=== PATIENT | male | born 1940 | race Caucasian/White ===

== ENCOUNTER 2024-03-09 14:20 | Outpatient (CLI) | payer MEDICARE, SELFPAY ==
--- NOTE | ~2024-03-09 | MR_ITS ---
EXAMINATION: MR shoulder RT wo con DATE: 03/09/2024 15:24 INDICATION: Right shoulder pain TECHNIQUE: Magnetic resonance imaging (MRI) of the right shoulder was performed without intravenous c ontrast. Sequences included axial PD-weighted FS FSE, coronal oblique PD-weighted FS FSE, coronal obl ique T2-weighted FS FSE, sagittal PD-weighted FS FSE, and sagittal T1-weighted SE. COMPARISON: None. FINDINGS: Coracoacromial arch: The acromion undersurface is curved in morphology (type II) with tiny anterior subacromial spur. The coracoacromial ligament is normal. Moderate acromioclavicular osteoarthritis with small inferiorly di rected marginal osteophytes. Rotator cuff: Moderate supraspinatus and mild infraspinatus tendinopathy. Full-thickness rotator cuff tear at the s uperior facet footplate of the anterior two thirds of the supraspinatus tendon which measures 1.2 cm AP and 1.5 cm medial to lateral. Moderate subscapularis tendinopathy with tear involving the majority of the cephalad third of the lesser tuberosity footplate with a small portion of the cephalad margin of the tendon remaining contiguous with the superolateral margin of the footplate and residual thin intact bursal side of the tendon which remains contiguous with the intact transverse humeral ligament . The teres minor tendon is normal. Normal rotator cuff muscle bulk and signal. Biceps tendon, glenoid labrum and glenohumeral cartilage: There is complete avulsion of the long head biceps tendon from its glenoid anchor with the torn tendo n margin retracted below the level of the intertubercular groove. There is a small tear at the 10:00- 11:00 position of the posterosuperior glenoid labrum. Remainder of the glenoid labrum appears to truman in intact. There is partial thickness chondral ulceration with relatively smooth chondral surface velia ng the inferomedial aspect of the humeral head. Remaining glenohumeral cartilage appears relatively p reserved. Fluid: There is a small glenohumeral joint effusion which extends into the deep subscapular recess as well a s through the full-thickness rotator cuff tear communicating with a small amount fluid in the subacro mial/subdeltoid bursa. There is a 5 mm loose body in the subacromial bursa. No intra-articular loose osteochondral bodies. Bones: Bone alignment is normal. No fracture or pathologic marrow replacing process. There are mild cystic a nd hypertrophic changes at both the lesser and greater tuberosities likely related to chronic rotator cuff disease. IMPRESSION: 1. Moderate supraspinatus and subscapularis tendinopathy with small full-thickness tear of the anteri or supraspinatus tendon and severe partial tear at the cephalad third of the lesser tuberosity footpl ate of the subscapularis tendon. 2. Complete glenoid avulsion and distal retraction of the long head biceps tendon. 3. Mild right glenohumeral osteoarthritis with small tear at the posterosuperior glenoid labrum. 4. Moderate acromioclavicular osteoarthritis. Reviewed, dictated and finalized at location B. IMPRESSION: 1. Moderate supraspinatus and subscapularis tendinopathy with small full-thickn ess tear of the anterior supraspinatus tendon and severe partial tear at the ce phalad third of the lesser tuberosity footplate of the subscapularis tendon. 2. Complete glenoid avulsion and distal retraction of the long head biceps tend on. 3. Mild right glenohumeral osteoarthritis with small tear at the posterosuperio r glenoid labrum. 4. Moderate acromioclavicular osteoarthritis.
== END 2024-03-09 14:21 | disposition home or self-care (01) ==
PROVIDERS: PCP Family Medicine; Visit Provider Orthopaedic Surgery
DX: M67.813 Other specified disorders of tendon, right shoulder (principal); M75.81 Other shoulder lesions, right shoulder; M75.121 Complete rotator cuff tear or rupture of right shoulder, not specified as traumatic; M19.011 Primary osteoarthritis, right shoulder; S46.191A Other injury of muscle, fascia and tendon of long head of biceps, right arm, initial encounter; S43.431A Superior glenoid labrum lesion of right shoulder, initial encounter; X58.XXXA Exposure to other specified factors, initial encounter
CPT/HCPCS: 73221

== ENCOUNTER 2024-05-23 09:32 | Outpatient (CLI) | payer MEDICARE, SELFPAY ==
--- NOTE | 2024-05-23 09:48 | ECG_ITS ---
Test Date: 2024-05-23 09:55:11 Measurements Intervals [place] Rate: 66 P: 63 [place]: 202 QRS: 1 QRSD: 115 T: 8 QT: 388 QTc: 409 Interpretive Statements SINUS RHYTHM INTRAVENTRICULAR CONDUCTION DELAY BORDERLINE R WAVE PROGRESSION, ANTERIOR LEADS CONSIDER INFERIOR INFARCT, AGE INDETERMINATE ABNORMAL ECG No previous ECG available for comparison Electronically Signed On 05-23-2024 10:28:23 CDT by Terry Torres D.O.
== END 2024-05-23 09:33 | disposition home or self-care (01) ==
PROVIDERS: PCP Family Medicine; Visit Provider Orthopaedic Surgery
DX: E78.5 Hyperlipidemia, unspecified (principal); I45.9 Conduction disorder, unspecified
CPT/HCPCS: 93005

== ENCOUNTER 2024-05-26 01:29 | Day surgery (SDC) | payer MEDICARE, SELFPAY ==
[2024-05-19 13:43] VITALS: BMI 29.6
--- NOTE | 2024-05-19 14:15 | PC.NURSE ---
Report to the Outpatient Waiting Room, entrance under the green pavilion located off [facility], at time _8:30AM_ on date _05/26/24_. Planned Procedure Time: _10:30AM__.? Time changes happen often and if your time is changed the preop area will call you the afternoon before. - You and your visitor will be asked to self-screen and do not enter if you have any COVID symptoms. Please call surgeon if you need to reschedule. - A mask is optional within the hospital at this time. Patients may have clear liquids (water, carbonated beverages, clear teas, apple juice) until 3 hours prior to surgery with a maximum of 20 ounces. - No food from midnight until time of surgery and no smoking. Take only the following medications with a SIP of water on the morning of surgery: CARVEDILOL, LEVOTHYROXINE DO NOT STOP ANY OF YOUR OTHER PRESCRIPTION MEDICATIONS PRIOR TO SURGERY EXCEPT THE FOLLOWING Medications to discontinue per physician NONE Date to take last dose Please no make-up, nail greenlandic, hairspray, perfume, deodorant, or body powder the day of surgery.? No jewelry (including any body piercings) or valuables the day of surgery, leave them at home.? Please take a shower or bath the night before, or the morning of, surgery with an antibacterial soap.? Wear comfortable, loose fitting clothing.? - Jewelry must be removed prior to entering the operating room.? Rings and piercings that are not removed may be cut off. - The hospital will not accept responsibility for valuables.? - Please leave all valuables, including medications, at home the day of surgery. If you are going home after surgery, a licensed motor pool driver must drive you home.? - NO public transportation without another adult if you receive anesthesia. - We recommend that an adult stay with you for 24 hours following discharge. - We also recommend that you do not drive, make important decision, drink alcoholic beverages, or take any drugs that were not prescribed by your health care provider for at least 24 hours after your discharge time. Follow any additional instructions given to you from your surgeon. DO NOT SHAVE ANY HAIR FROM SURGERY SITE. Telephone instructions given to ____PATIENT and asked if any additional questions and then verbalized understanding. Patient advised to call surgeon office or pre surgery nurse liaison [phone] if any additional questions.
[2024-05-26] VITALS (8 sets, daily range): BP systolic 92–130; BP diastolic 52–65; PULSE 54–80; RESP 12–20; TEMP 36.2; O2SAT 93–100
[2024-05-26] MEDS: ACETAMINOPHEN 500 MG TABLET 1000 MG PO (08:48)
[2024-05-26] MEDS: LACTATED RINGERS 1,000 ML 30 ML IV CONT ×2 (08:50→11:57)
[2024-05-26] MEDS: KETOROLAC 15 MG/ML VIAL (*BKC) IV PUSH (08:53)
--- NOTE | 2024-05-26 09:25 | WPDHPUPDATE1 ---
History and Physical Update Update Date/Time: 05/26/24 09:25 History and Physical has been reviewed, including an updated exam of the patient. There are NO changes in the patient's condition. Risks, benefits, and alternatives have been discussed and questions answered. Patient agrees to proceed with procedure.
--- NOTE | 2024-05-26 09:42 | WPDANESEPPF ---
Anes - Initial Pre Proc Eval Procedure: Operation Date: 05/26/24 10:30 Proposed Procedures p Right Shoulder Arthroscopy, Rotator Cuff Repair with Subacromial Decompression - Jone Lion MD Date/Time: 05/26/24 09:42 Surgeon: Jone Lion MD Pre Op Diagnosis: complete right rotator cuff tear Patient Data Age: 83 Gender: M Height: 1.75 m Weight: 96.9 kg Last Vital Signs Temp 97.1 F L 05/26/24 08:41 Pulse 80 05/26/24 08:41 Resp 20 05/26/24 08:41 BP 117/65 05/26/24 08:41 Pulse Ox 98 05/26/24 08:41 O2 Del Method Room Air 05/26/24 08:41 Allergies Allergy/AdvReac Type Severity Reaction Status Date / Time No Known Allergies Allergy Verified 05/26/24 08:36 Home Medications Medication Instructions Recorded Confirmed Type carvedilol 12.5 mg tablet (Coreg) 12.5 mg PO QAM 05/22/23 05/26/24 History levothyroxine 88 mcg capsule 88 mcg PO DAILY 05/22/23 05/26/24 History ezetimibe 10 mg-simvastatin 20 mg 1 tablet PO HS 05/19/24 05/26/24 History tablet oxycodone-acetaminophen 5 mg-325 1 - 2 tablet PO Q4-6H PRN pain #30 05/26/24 Rx mg tablet tabs Patient hx anesthesia problems: none Family hx anesthesia problems: none Results Review: All pre-operative results and documents have been reviewed as part of the pre-operative evaluation. 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 H/O vasectomy (~1974) History of back surgery 1974 History of hernia surgery (~1985) History of knee replacement (~2009) Lt.knee replacement History of partial surgical removal of colon (~2005) Hx of cholecystectomy (~2001) Family History Family History Father COPD (chronic obstructive pulmonary disease) Mother Heart disease Alzheimer disease Sibling Diabetes mellitus Social History Social History Smoking packs per day: 3 Smoking cigarettes per day: 60.0 Years smoked: 13 Smoking pack-years: 39.00 Smoking status: Former smoker Tobacco type: cigarettes Smoking end date: 03/07/77 Alcohol intake: current Alcohol use details: 10-14 ounces a week Substance use: never Substance use type: does not use Do You Feel Safe in your Home?: Yes Lack of Transportation: No Lack of Food: Never True Current Housing: I Have Housing Concerned About Future Housing: No Difficulty Paying Gas/Electric Bills: No Difficulty Paying for Meds: No Currently Unemployed: No Education: High School Diploma/GED Difficulty w/ Childcare or Family Care: No Living arrangements: with family Additional living arrangements comments: Spiritual care concerns: No Anes - Eval Final PreProcedure Day of Procedure 05/26/24 09:42 Patient weight: obese Heart: regular rate and rhythm Lungs: clear to auscultation Airway: Mallampati scale class II Neurological: alert and oriented Last oral intake: >/= 8 hours Emergent: no Anesthetic plan: proceed Anesthesia type and monitoring: general ETT and standard monitoring Results Review: All pre-operative results and documents have been reviewed as part of the pre-operative evaluation. HTN, hyperlipidemia, hypothryroidism, hx of CABG 1999, last stress test approx 2018. Pt reports it was nml without interval cp or sob. He can walk 1-2 fos no cp, mild dyspnea w 2 fos. Informed Consent: The patient's anesthetic plan and its attendant risks and benefits were discussed with the patient/family/POA. Questions were solicited and answers provided to the satisfaction of the patient/family/POA.
--- NOTE | 2024-05-26 09:44 | WPDANESPNB ---
Anes - Peripheral Nerve Block Date/Time: 05/26/24 09:44 I have discussed with the patient/family/POA the placement of a peripheral nerve block for post-operative pain management, including associated risks, benefits, complications, and side effects. Alternative methods of post-operative analgesia were detailed. Questions were solicited and answers provided to the satisfaction of the patient/family/POA. Time-Out: A pre-procedural Time-Out was completed immediately before starting the procedure and confirmed: Patient Identification, Site, Procedure, Patient Position and the Availability of Requisite Equipment. Clinical Indications: Acute post-operative pain management requested by the operative surgeon. Nerve Block Insertion Note Anes-nerve block: interscalene right Patient position: supine Skin prep: chlorhexidine Needle: 22 gauge, stimulating, insulated echogenic needle. Needle length: 80 mm Technique: ultrasound Injectate: other (Bupiv 0.5%, 15 mls. ) Observations: tolerated well Complications: none Procedure start time:: 930 Procedure end time:: 940
[2024-05-26] MEDS: ceFAZolin 2 GM/D5W 50 ML 2 GM/50 ML BAG IVPB (09:46)
--- NOTE | 2024-05-26 14:17 | P.OP_ITS ---
Procedure Note - Detailed Date of Procedure 05/26/24 Pre-op Diagnosis Complete right rotator cuff tear Post-op Diagnosis Other (1. Rotator cuff tear 2. Subacromial impingement ) Procedure Performed Right shoulder 1. Arthroscopic rotator cuff repair 2. Arthroscopic subacromial decompression Surgeon Jone Lion MD Stationary Engineer Apprentice Jayna Lundy PA-C Anesthesia General and Regional ( interscalene block) Findings Large vikas superior cuff tear. High grade partial subscapularis cephalad tear. Repaired with 2 sutures through a bone tunnel. L shaped supraspinatus tear repaired with 2 tunnel rip stop with 6 sutures. Anatomic repair without undue tension. Lateral spur treated with modest acromioplasty. Chronic biceps rupture. Minimal labral debridement required. Minimal chondromalacia on the humerus. Description of Procedure Preoperative antibiotics were given. An interscalene block was administered in the preoperative area. The patient was bought brought to the operating room. A general anesthetic was administered. The patient was carefully positioned in the beach chair position. The head and neck were carefully positioned. The non operative extremity was also carefully positioned. The shoulder was prepped and draped in the usual sterile fashion. Examination was performed. Standard posterior and anterior arthroscopic portals were established. Inflow achieved with the arthroscopic pump using saline and epinephrine. The glenohumeral joint was carefully inspected. Minimal chondromalacia on the humerus posterior cuff intact. Chronic biceps rupture confirmed. Modest labral debridement performed.. Attention was turned to the subacromial space. The bursa was thickened and appeared chronic. A complete bursectomy was performed. The tear configuration was carefully assessed. Subscapularis had a high-grade articular side tearing. A single bone tunnel was placed followed by 2 sutures into the subscapularis. This reduced the cephalad subscapularis very nicely. At this point, 2 tunnels were created at the greater tuberosity for repair of the supraspinatus. Three sutures were passed through each tunnel. All sutures were then passed through the cuff tissue. The rip stop configuration was used with the second and lynnette suture. The sutures were tied arthroscopically. The arthroscopic instruments were removed. The wounds were closed with 3-0 Monocryl subcuticular suture and steri strips. There were no complications. A sling was applied and the patient brought to the recovery room. Physician patient clerical assistant, Jayna Lundy PA-C, required for surgery; including pa tient positioning, draping, arthroscopic camera operation, maintaining instrument position, suture retrieval, wound closure, and dressing and sling placement. Estimated Blood Loss 20 Pathology None sent Complications No immediate complications Condition Stable Disposition PACU [facility] Billing Surgery - Charge Forward: Surgery Billing
== END 2024-05-26 13:50 | disposition home or self-care (01) ==
PROVIDERS: PCP Family Medicine; Visit Provider Orthopaedic Surgery
PROC: (CPT 29805; principal; 2024-05-26 10:30)
DX: M75.121 Complete rotator cuff tear or rupture of right shoulder, not specified as traumatic (principal); M75.81 Other shoulder lesions, right shoulder; M94.211 Chondromalacia, right shoulder; G89.18 Other acute postprocedural pain; E66.9 Obesity, unspecified; Z68.31 Body mass index [BMI] 31.0-31.9, adult; Z79.891 Long term (current) use of opiate analgesic; Z98.890 Other specified postprocedural states; Z98.1 Arthrodesis status; Z90.49 Acquired absence of other specified parts of digestive tract; Z96.652 Presence of left artificial knee joint; Z95.1 Presence of aortocoronary bypass graft; Z87.891 Personal history of nicotine dependence; Z82.49 Family history of ischemic heart disease and other diseases of the circulatory system
CPT/HCPCS: 64415; 29827; 29826; A4565; A9270; J0171; J0690; J1100; J1596; J1885; J2405; J2704; J3010; J7120